=== PATIENT | female | born 1980 | race African-American/Black ===

== ENCOUNTER 2017-10-17 20:00 | Emergency (ER) | payer OTHER ==
[2017-10-17 20:25] LABS: URINE HCG POC HCG NEGATIVE (Negative)
[2017-10-17] MEDS: IBUPROFEN 800 MG TABLET. PO (20:42)
[2017-10-17] MEDS: HYDROcodone/APAP 5/325MG 1 TAB TABLET PO (20:42)
== END 2017-10-17 21:55 | disposition home or self-care (01) ==
LOC: ER 21:55
DX: R07.89 Other chest pain (principal); M79.601 Pain in right arm; V47.5XXA Car driver injured in collision with fixed or stationary object in traffic accident, initial encounter; Y93.89 Activity, other specified; Y99.8 Other external cause status; Y92.488 Other paved roadways as the place of occurrence of the external cause
CPT/HCPCS: 71111; 73030; 81025; 99284